=== PATIENT | female | born 1985 | race African-American/Black ===

== ENCOUNTER 2018-04-17 20:26 | Observation (INO) ==
[2018-04-17] MEDS ORDERED: SODIUM CHLORIDE 0.9% 1,000 ML IV STA (20:55)
[2018-04-17] MEDS ORDERED: MEPERIDINE 50 MG/1 ML VIAL IV STA ×3 (20:56→22:45)
[2018-04-17] MEDS ORDERED: ONDANSETRON 4 MG/2 ML VIAL IV STA (20:56)
[2018-04-17 21:02] LABS: Basophils # 0.1 10*3/uL (0.0-0.2); Basophils % 0.9 % (0.0-0.8); Eosinophils # 0.3 10*3/uL (0.0-0.87); Eosinophils % 2.8 % (0.00-10.9); Hematocrit 31.6 VOL% (35.7-47.0); Hemoglobin 9.5 GM/DL (12.0-16.0); Immature Granulocytes % 0.3 %; Immature Granulocytes Absolute 0.03 #; Lymphocytes # 2.5 10*3/uL (1.4-4.0); Lymphocytes % 28.9 % (21.3-54.2); Mean Corpuscular HGB Conc 30.1 GM/DL (32-36); Mean Corpuscular Hemoglobin 22 PG (27-34); Mean Corpuscular Volume 74.2 FL (87-102); Mean Platelet Volume 8.7 FL (9.6-12.0); Monocytes # 0.5 10*3/uL (0.11-0.8); Monocytes % 5.5 % (1.7-12.7); Neutrophils # 5.4 10*3/uL (1.4-7.4); Neutrophils % 61.6 % (38.7-73.9); Platelet Count 507 T/CUMM (130-400); Red Blood Count 4.26 MC/CUMM (3.8-5.5); Red Cell Distribution Width 17.5 % (9.3-17.3); White Blood Count 8.8 T/CUMM (4-12)
[2018-04-17 21:17] LABS: Alanine Aminotransferase 18 U/L (13-56); Albumin 3.2 G/DL (3.4-5.0); Alkaline Phosphatase 59 U/L (45-117); Aspartate Amino Transferase 14 U/L (0-37); Bilirubin,Total < 0.39 MG/DL (0.2-1.0); Blood Urea Nitrogen 8 MG/DL (7-18); Calcium 8.5 MG/DL (8.5-10.1); Glucose 101 MG/DL (74-106); Osmolality,Calculated 280.1 MOS/KG (273-304); Potassium 3.5 MMOL/L (3.5-5.1); Sodium 142 MMOL/L (136-145); Total Protein 7.1 G/DL (6.4-8.3)
[2018-04-17] MEDS ORDERED: MORPHINE 4 MG/1 ML VIAL ONE (22:51)
[2018-04-17] MEDS ORDERED: MORPHINE 4 MG/1 ML VIAL IV STA (23:15)
[2018-04-17] MEDS ORDERED: ONDANSETRON 4 MG/2 ML VIAL IV PRN (23:42)
[2018-04-17] MEDS ORDERED: ALBUTEROL 2.5 MG/3 ML NEB RESP TX PRN ×2 (23:44)
[2018-04-17] MEDS ORDERED: PROMETHAZINE 25 MG TABLET PO PRN (23:44)
[2018-04-18] MEDS: MORPHINE 4 MG/1 ML VIAL IV PRN ×5 (01:05→20:41)
[2018-04-18] MEDS: SODIUM CHLORIDE 0.9% 1,000 ML IV SCH ×2 (01:12→20:41)
[2018-04-18 03:35] LABS: Amorphous Crystals,Urine Few /HPF (Few); Apearance,Urine Slightly Hazy (Clear); Bilirubin,Urine Negative (Negative); Blood, Urine Negative (Negative); Glucose,Urine (UA) Negative (Negative); Hyaline Casts,Urine 3 /LPF (0-3); Ketones,Urine Negative (Negative); Mucus,Urine Occasional /LPF (Occasional); Nitrite,Urine Negative (Negative); Protein,Urine Negative; RBC,Urine 1 /HPF (0-4); Squamous Epithelial Cell,Urine Occasional /HPF (0-10); Urine Color Yellow (Yellow); Urine Urobilinogen < 2.0 EU/DL (0.2-1.0); WBC,Urine 7 /HPF (0-6)
[2018-04-18 05:43] LABS: Basophils # 0.1 10*3/uL (0.0-0.2); Basophils % 0.8 % (0.0-0.8); Eosinophils # 0.3 10*3/uL (0.0-0.87); Eosinophils % 3.8 % (0.00-10.9); Hematocrit 30.1 VOL% (35.7-47.0); Immature Granulocytes % 0.2 %; Immature Granulocytes Absolute 0.02 #; Lymphocytes # 2.8 10*3/uL (1.4-4.0); Lymphocytes % 32.9 % (21.3-54.2); Mean Corpuscular HGB Conc 29.9 GM/DL (32-36); Mean Corpuscular Hemoglobin 22 PG (27-34); Mean Corpuscular Volume 72.7 FL (87-102); Mean Platelet Volume 8.8 FL (9.6-12.0); Monocytes # 0.6 10*3/uL (0.11-0.8); Monocytes % 7.6 % (1.7-12.7); Neutrophils # 4.6 10*3/uL (1.4-7.4); Neutrophils % 54.7 % (38.7-73.9); Platelet Count 480 T/CUMM (130-400); Red Blood Count 4.14 MC/CUMM (3.8-5.5); Red Cell Distribution Width 17.8 % (9.3-17.3); White Blood Count 8.4 T/CUMM (4-12)
[2018-04-18 06:14] LABS: Albumin 3.1 G/DL (3.4-5.0); Bilirubin,Total 1.1 MG/DL (0.2-1.0); Calcium 8.2 MG/DL (8.5-10.1); Osmolality,Calculated 278.3 MOS/KG (273-304); Potassium 3.7 MMOL/L (3.5-5.1); Total Protein 6.5 G/DL (6.4-8.3)
[2018-04-18] MEDS: FERROUS SULFATE 325 MG TABLET PO SCH ×3 (09:11→20:42)
[2018-04-18] MEDS: ENOXAPARIN 40 MG/0.4 ML SYRINGE SUBCUT SCH (09:11)
[2018-04-18] MEDS: FOLIC ACID 0.4 MG TABLET PO SCH (09:11)
[2018-04-18] MEDS: tiZANidine 4 MG TABLET PO SCH ×3 (09:11→20:42)
[2018-04-18] MEDS: PANTOPRAZOLE 40 MG TABLET PO SCH (09:11)
[2018-04-18] MEDS: oxyCODONE/ACETAMINOPHEN 5-325 MG TABLET PO PRN (23:43)
[2018-04-19] MEDS: MORPHINE 4 MG/1 ML VIAL IV PRN ×2 (02:06→06:14)
[2018-04-19] MEDS: SODIUM CHLORIDE 0.9% 1,000 ML IV SCH ×2 (06:14→09:54)
[2018-04-19 06:25] LABS: Basophils # 0.1 10*3/uL (0.0-0.2); Basophils % 0.6 % (0.0-0.8); Eosinophils # 0.4 10*3/uL (0.0-0.87); Eosinophils % 4.1 % (0.00-10.9); Hematocrit 29.3 VOL% (35.7-47.0); Hemoglobin 8.7 GM/DL (12.0-16.0); Immature Granulocytes % 0.4 %; Immature Granulocytes Absolute 0.03 #; Lymphocytes # 2.7 10*3/uL (1.4-4.0); Mean Corpuscular HGB Conc 29.7 GM/DL (32-36); Mean Corpuscular Hemoglobin 22 PG (27-34); Mean Corpuscular Volume 74.6 FL (87-102); Mean Platelet Volume 9.2 FL (9.6-12.0); Monocytes # 0.6 10*3/uL (0.11-0.8); Monocytes % 7.1 % (1.7-12.7); Neutrophils # 4.9 10*3/uL (1.4-7.4); Neutrophils % 56.8 % (38.7-73.9); Platelet Count 480 T/CUMM (130-400); Red Blood Count 3.93 MC/CUMM (3.8-5.5); Red Cell Distribution Width 17.9 % (9.3-17.3); White Blood Count 8.5 T/CUMM (4-12)
[2018-04-19 07:11] LABS: Albumin 2.9 G/DL (3.4-5.0); Bilirubin,Total 0.6 MG/DL (0.2-1.0); Calcium 8.2 MG/DL (8.5-10.1); Osmolality,Calculated 280.1 MOS/KG (273-304); Total Protein 6.4 G/DL (6.4-8.3)
[2018-04-19] MEDS: FERROUS SULFATE 325 MG TABLET PO SCH (09:56)
[2018-04-19] MEDS: FOLIC ACID 0.4 MG TABLET PO SCH (09:56)
[2018-04-19] MEDS: tiZANidine 4 MG TABLET PO SCH (09:56)
[2018-04-19] MEDS: oxyCODONE/ACETAMINOPHEN 5-325 MG TABLET PO PRN (09:56)
[2018-04-19] MEDS: ENOXAPARIN 40 MG/0.4 ML SYRINGE SUBCUT SCH (09:56)
[2018-04-19] MEDS: PANTOPRAZOLE 40 MG TABLET PO SCH (09:56)
[2018-04-19 14:51] VITALS: BP 141/80
== END 2018-04-19 14:45 | disposition home or self-care (01) ==
LOC: EDBD → EDUNIT# → N.4E 20:26 → N.ED 20:26 → N.4E 04-18 01:09
PROVIDERS: ADMIT Internal Medicine; ATTEND Internal Medicine

== ENCOUNTER 2018-12-15 20:47 | Inpatient (IN) ==
[2018-12-15] MEDS ORDERED: SODIUM CHLORIDE 0.9% 1,000 ML IV STA (22:39)
[2018-12-15] MEDS ORDERED: MEPERIDINE 50 MG/1 ML VIAL IV STA (23:05)
[2018-12-15] MEDS ORDERED: ONDANSETRON 4 MG/2 ML VIAL IV STA (23:06)
[2018-12-15 23:31] LABS: Basophils # 0.1 10*3/uL (0.0-0.2); Basophils % 0.6 % (0.0-0.8); Eosinophils # 0.4 10*3/uL (0.0-0.87); Eosinophils % 3.8 % (0.00-10.9); Hematocrit 35.2 VOL% (35.7-47.0); Hemoglobin 10.6 GM/DL (12.0-16.0); Immature Granulocytes % 0.2 %; Immature Granulocytes Absolute 0.02 #; Lymphocytes # 2.7 10*3/uL (1.4-4.0); Lymphocytes % 25.8 % (21.3-54.2); Mean Corpuscular HGB Conc 30.1 GM/DL (32-36); Mean Corpuscular Hemoglobin 24 PG (27-34); Mean Corpuscular Volume 80.2 FL (87-102); Mean Platelet Volume 8.6 FL (9.6-12.0); Monocytes # 0.7 10*3/uL (0.11-0.8); Monocytes % 6.8 % (1.7-12.7); Neutrophils # 6.6 10*3/uL (1.4-7.4); Neutrophils % 62.8 % (38.7-73.9); Platelet Count 447 T/CUMM (130-400); Red Blood Count 4.39 MC/CUMM (3.8-5.5); White Blood Count 10.5 T/CUMM (4-12)
[2018-12-16] MEDS ORDERED: MEPERIDINE 50 MG/1 ML VIAL IV STA (00:11)
[2018-12-16 00:56] LABS: Alanine Aminotransferase 17 U/L (13-56); Albumin 3.2 G/DL (3.4-5.0); Alkaline Phosphatase 62 U/L (45-117); Aspartate Amino Transferase 11 U/L (0-37); Bilirubin,Total < 0.39 MG/DL (0.2-1.0); Blood Urea Nitrogen 5 MG/DL (7-18); Calcium 8.5 MG/DL (8.5-10.1); Total Protein 7.1 G/DL (6.4-8.3)
[2018-12-16 00:57] LABS: Glucose 97 MG/DL (74-106); Osmolality,Calculated 277.3 MOS/KG (273-304); Potassium 3.7 MMOL/L (3.5-5.1); Sodium 141 MMOL/L (136-145)
[2018-12-16] MEDS ORDERED: ALBUTEROL 2.5 MG/3 ML NEB RESP TX PRN (03:45)
[2018-12-16] MEDS ORDERED: CEFTAROLINE 600 MG in SODIUM CHLORIDE 0.9% 100 ML IV SCH (04:00)
[2018-12-16] MEDS: ENOXAPARIN 40 MG/0.4 ML SYRINGE SUBCUT SCH (04:43)
[2018-12-16] MEDS: MORPHINE 4 MG/1 ML VIAL IV PRN ×3 (04:48→17:11)
[2018-12-16] MEDS: SODIUM CHLORIDE 0.9% 1,000 ML IV SCH ×2 (04:49→13:58)
[2018-12-16 04:56] LABS: Basophils # 0.1 10*3/uL (0.0-0.2); Basophils % 0.5 % (0.0-0.8); Eosinophils # 0.4 10*3/uL (0.0-0.87); Hematocrit 35.7 VOL% (35.7-47.0); Immature Granulocytes % 0.5 %; Immature Granulocytes Absolute 0.05 #; Lymphocytes # 2.9 10*3/uL (1.4-4.0); Mean Corpuscular HGB Conc 29.4 GM/DL (32-36); Mean Corpuscular Hemoglobin 24 PG (27-34); Mean Corpuscular Volume 80.8 FL (87-102); Mean Platelet Volume 8.4 FL (9.6-12.0); Monocytes # 0.6 10*3/uL (0.11-0.8); Monocytes % 5.6 % (1.7-12.7); Neutrophils # 6.3 10*3/uL (1.4-7.4); Neutrophils % 61.4 % (38.7-73.9); Platelet Count 426 T/CUMM (130-400); Red Blood Count 4.42 MC/CUMM (3.8-5.5); White Blood Count 10.2 T/CUMM (4-12)
[2018-12-16 05:12] LABS: Hemoglobin 10.6 GM/DL (12.0-16.0)
[2018-12-16 05:29] LABS: Albumin 3.2 G/DL (3.4-5.0); Bilirubin,Total 0.5 MG/DL (0.2-1.0); Calcium 7.9 MG/DL (8.5-10.1); Osmolality,Calculated 275.4 MOS/KG (273-304); Potassium 3.9 MMOL/L (3.5-5.1); Total Protein 7.1 G/DL (6.4-8.3)
[2018-12-16] MEDS: LISINOPRIL 5 MG TABLET PO SCH (08:51)
[2018-12-16] MEDS: FERROUS SULFATE 325 MG TABLET PO SCH ×3 (08:51→20:50)
[2018-12-16] MEDS: FOLIC ACID 1 MG TABLET PO SCH (08:51)
[2018-12-16] MEDS: ONDANSETRON 4 MG/2 ML VIAL IV PRN ×2 (12:23→17:08)
[2018-12-16] MEDS: VANCOMYCIN INJ 2,000 MG in SODIUM CHLORIDE 0.9% 500 ML IV SCH (15:17)
[2018-12-17] MEDS: MORPHINE 4 MG/1 ML VIAL IV PRN (00:28)
[2018-12-17] MEDS: SODIUM CHLORIDE 0.9% 1,000 ML IV SCH (00:34)
[2018-12-17] MEDS: VANCOMYCIN INJ 2,000 MG in SODIUM CHLORIDE 0.9% 500 ML IV SCH (03:31)
[2018-12-17 08:28] LABS: Basophils % 0.3 % (0.0-0.8); Eosinophils # 0.4 10*3/uL (0.0-0.87); Eosinophils % 3.8 % (0.00-10.9); Hematocrit 34.2 VOL% (35.7-47.0); Hemoglobin 10.1 GM/DL (12.0-16.0); Immature Granulocytes % 0.4 %; Immature Granulocytes Absolute 0.04 #; Lymphocytes # 2.2 10*3/uL (1.4-4.0); Lymphocytes % 23.6 % (21.3-54.2); Mean Corpuscular HGB Conc 29.5 GM/DL (32-36); Mean Corpuscular Hemoglobin 24 PG (27-34); Mean Platelet Volume 8.3 FL (9.6-12.0); Monocytes # 0.5 10*3/uL (0.11-0.8); Monocytes % 5.2 % (1.7-12.7); Neutrophils # 6.3 10*3/uL (1.4-7.4); Neutrophils % 66.7 % (38.7-73.9); Platelet Count 401 T/CUMM (130-400); Red Blood Count 4.22 MC/CUMM (3.8-5.5); Red Cell Distribution Width 15.9 % (9.3-17.3); White Blood Count 9.4 T/CUMM (4-12)
[2018-12-17] MEDS: LISINOPRIL 5 MG TABLET PO SCH (09:57)
[2018-12-17] MEDS: FOLIC ACID 1 MG TABLET PO SCH (09:57)
[2018-12-17] MEDS: ENOXAPARIN 40 MG/0.4 ML SYRINGE SUBCUT SCH (09:57)
[2018-12-17] MEDS: FERROUS SULFATE 325 MG TABLET PO SCH (09:58)
[2018-12-17 11:26] VITALS: BP 166/91
== END 2018-12-17 11:54 | disposition home or self-care (01) | DRG 662 ==
LOC: N.ED 20:47 → N.2E 20:47
PROVIDERS: ADMIT Internal Medicine; ATTEND Internal Medicine

== ENCOUNTER 2021-03-25 14:13 | Inpatient (IN) ==
[2021-03-25 15:43] LABS: Basophils # 0.1 10*3/uL (0.0-0.2); Basophils % 0.4 % (0.0-0.8); Eosinophils # 0.4 10*3/uL (0.0-0.87); Eosinophils % 2.5 % (0.00-10.9); Hematocrit 34.6 VOL% (35.7-47.0); Hemoglobin 10.1 GM/DL (12.0-16.0); Immature Granulocytes % 0.4 %; Immature Granulocytes Absolute 0.06 #; Lymphocytes # 2.7 10*3/uL (1.4-4.0); Lymphocytes % 19.2 % (21.3-54.2); Mean Corpuscular HGB Conc 29.2 GM/DL (32-36); Mean Corpuscular Volume 73.5 FL (87-102); Mean Platelet Volume 8.8 FL (9.6-12.0); Monocytes % 5.2 % (1.7-12.7); Neutrophils % 72.3 % (38.7-73.9); Platelet Count 692 T/CUMM (130-400); Red Blood Count 4.71 MC/CUMM (3.8-5.5); Red Cell Distribution Width 18.5 % (9.3-17.3); White Blood Count 14.2 T/CUMM (4-12)
[2021-03-25 15:54] LABS: Alanine Aminotransferase 19 U/L (13-56); Albumin 3.3 G/DL (3.4-5.0); Alkaline Phosphatase 71 U/L (45-117); Aspartate Amino Transferase 16 U/L (0-37); Bilirubin,Total < 0.39 MG/DL (0.20-1.00); Blood Urea Nitrogen 6 MG/DL (7-18); Calcium 8.5 MG/DL (8.5-10.1); Carbon Dioxide 26 MMOL/L (21-32); Glucose 100 MG/DL (74-106); Osmolality,Calculated 276.4 MOS/KG (273-304); Potassium 4.1 MMOL/L (3.5-5.1); Sodium 140 MMOL/L (136-145); Total Protein 7.2 G/DL (6.4-8.2)
[2021-03-25 15:57] LABS: Estimated Glom Filtration Rate 0 ML/MIN
[2021-03-25] MEDS ORDERED: HYDROmorphone 2 MG/1 ML VIAL IV STA ×3 (16:08→18:10)
[2021-03-25] MEDS ORDERED: ONDANSETRON 4 MG/2 ML VIAL ONE (16:12)
[2021-03-25] MEDS ORDERED: DEXTROSE 50% 25 GM/50 ML VIAL IV PRN (18:41)
[2021-03-25] MEDS ORDERED: ONDANSETRON 4 MG/2 ML VIAL IV PRN (18:41)
[2021-03-25] MEDS ORDERED: MORPHINE 2 MG/1 ML SYRINGE IV PRN (18:41)
[2021-03-25] MEDS ORDERED: GLUCAGON 1 MG VIAL IM PRN (18:41)
[2021-03-25] MEDS ORDERED: ALBUTEROL 2.5 MG/3 ML NEB RESP TX PRN (18:44)
[2021-03-25] MEDS ORDERED: hydrALAZINE 20 MG/1 ML VIAL IV PRN (19:00)
[2021-03-25] MEDS: GABAPENTIN 300 MG CAPSULE PO SCH (21:19)
[2021-03-25] MEDS: ENOXAPARIN 40 MG/0.4 ML SYRINGE SUBCUT SCH (21:19)
[2021-03-25] MEDS: FERROUS SULFATE 325 MG TABLET PO SCH (21:19)
[2021-03-25] MEDS: SODIUM CHLORIDE 0.45% 1,000 ML IV SCH (21:19)
[2021-03-26] MEDS: ACETAMINOPHEN 500 MG TABLET PO PRN (01:32)
[2021-03-26 05:57] LABS: Calcium 8.3 MG/DL (8.5-10.1); Osmolality,Calculated 272.7 MOS/KG (273-304); Potassium 4.1 MMOL/L (3.5-5.1)
[2021-03-26 06:00] LABS: Basophils # 0.1 10*3/uL (0.0-0.2); Basophils % 0.6 % (0.0-0.8); Eosinophils # 0.2 10*3/uL (0.0-0.87); Eosinophils % 1.6 % (0.00-10.9); Hematocrit 32.4 VOL% (35.7-47.0); Hemoglobin 9.7 GM/DL (12.0-16.0); Immature Granulocytes % 0.4 %; Immature Granulocytes Absolute 0.04 #; Lymphocytes % 18.9 % (21.3-54.2); Mean Corpuscular HGB Conc 29.9 GM/DL (32-36); Mean Platelet Volume 8.7 FL (9.6-12.0); Monocytes % 6.5 % (1.7-12.7); Platelet Count 624 T/CUMM (130-400); Red Blood Count 4.38 MC/CUMM (3.8-5.5); Red Cell Distribution Width 18.7 % (9.3-17.3); White Blood Count 10.8 T/CUMM (4-12)
[2021-03-26] MEDS ORDERED: KETOROLAC 30 MG/1 ML VIAL IV ONE (08:07)
[2021-03-26] MEDS: FERROUS SULFATE 325 MG TABLET PO SCH ×3 (09:14→20:39)
[2021-03-26] MEDS: CETIRIZINE 10 MG TABLET PO SCH (09:14)
[2021-03-26] MEDS: PANTOPRAZOLE 40 MG TABLET PO SCH (09:14)
[2021-03-26] MEDS: FOLIC ACID 1 MG TABLET PO SCH (09:15)
[2021-03-26] MEDS: GABAPENTIN 300 MG CAPSULE PO SCH ×2 (09:15→20:39)
[2021-03-26] MEDS: MELOXICAM 7.5 MG TABLET PO SCH (09:15)
[2021-03-26] MEDS: SODIUM CHLORIDE 0.45% 1,000 ML IV SCH ×2 (10:40→23:19)
[2021-03-26] MEDS ORDERED: HYDROmorphone PCA 30 MG/30 ML SYRINGE IV SCH (14:00)
[2021-03-26] MEDS: ENOXAPARIN 40 MG/0.4 ML SYRINGE SUBCUT SCH (20:39)
[2021-03-27 06:30] LABS: Basophils # 0.1 10*3/uL (0.0-0.2); Basophils % 0.5 % (0.0-0.8); Eosinophils # 0.4 10*3/uL (0.0-0.87); Eosinophils % 2.7 % (0.00-10.9); Hematocrit 31.2 VOL% (35.7-47.0); Hemoglobin 9.2 GM/DL (12.0-16.0); Immature Granulocytes % 0.9 %; Immature Granulocytes Absolute 0.12 #; Lymphocytes # 3.7 10*3/uL (1.4-4.0); Lymphocytes % 27.8 % (21.3-54.2); Mean Corpuscular HGB Conc 29.5 GM/DL (32-36); Mean Corpuscular Volume 75.5 FL (87-102); Mean Platelet Volume 8.6 FL (9.6-12.0); Monocytes % 5.7 % (1.7-12.7); Neutrophils % 62.4 % (38.7-73.9); Platelet Count 615 T/CUMM (130-400); Red Blood Count 4.13 MC/CUMM (3.8-5.5); Red Cell Distribution Width 18.7 % (9.3-17.3); White Blood Count 13.2 T/CUMM (4-12)
[2021-03-27 07:04] LABS: Calcium 8.3 MG/DL (8.5-10.1); Potassium 4.7 MMOL/L (3.5-5.1)
[2021-03-27] MEDS: PANTOPRAZOLE 40 MG TABLET PO SCH (09:15)
[2021-03-27] MEDS: GABAPENTIN 300 MG CAPSULE PO SCH (09:15)
[2021-03-27] MEDS: FERROUS SULFATE 325 MG TABLET PO SCH (09:15)
[2021-03-27] MEDS: FOLIC ACID 1 MG TABLET PO SCH (09:15)
[2021-03-27] MEDS: MELOXICAM 7.5 MG TABLET PO SCH (09:15)
[2021-03-27] MEDS: CETIRIZINE 10 MG TABLET PO SCH (09:15)
[2021-03-27] MEDS ORDERED: traMADol 50 MG TABLET PO PRN (10:23)
[2021-03-27] MEDS: ACETAMINOPHEN 500 MG TABLET PO PRN (11:40)
[2021-03-27 12:33] VITALS: BP 130/58
[2021-03-27] MEDS: SODIUM CHLORIDE 0.45% 1,000 ML IV SCH (13:14)
[2021-03-27] MEDS ORDERED: HYDROmorphone PCA 30 MG/30 ML SYRINGE IV SCH (13:30)
[2021-03-28] MEDS ORDERED: AZITHROMYCIN 250 MG TABLET PO SCH (09:00)
== END 2021-03-27 13:50 | disposition home or self-care (01) | DRG 662 ==
LOC: N.EDINP 14:13 → N.ED 14:13 → N.3E 20:22
PROVIDERS: ADMIT Internal Medicine; ATTEND Internal Medicine

== ENCOUNTER 2021-07-03 05:23 | Observation (INO) ==
[2021-07-03 06:08] LABS: Alanine Aminotransferase 18 U/L (13-56); Albumin 3.4 G/DL (3.4-5.0); Alkaline Phosphatase 66 U/L (45-117); Aspartate Amino Transferase 17 U/L (0-37); Bilirubin,Total < 0.39 MG/DL (0.20-1.00); Blood Urea Nitrogen 6 MG/DL (7-18); Calcium 8.9 MG/DL (8.5-10.1); Carbon Dioxide 26 MMOL/L (21-32); Estimated Glom Filtration Rate 120 ML/MIN; Glucose 106 MG/DL (74-106); Osmolality,Calculated 274.5 MOS/KG (273-304); Potassium 3.6 MMOL/L (3.5-5.1); Sodium 139 MMOL/L (136-145)
[2021-07-03] MEDS ORDERED: NITROGLYCERIN SL 0.4 MG TABLET SL STA (06:16)
[2021-07-03] MEDS ORDERED: hydrALAZINE 20 MG/1 ML VIAL IV STA ×2 (06:17→08:11)
[2021-07-03] MEDS ORDERED: ALBUTEROL 2.5 MG/3 ML NEB RESP TX STA (06:17)
[2021-07-03 06:40] LABS: Basophils # 0.1 10*3/uL (0.0-0.2); Basophils % 0.6 % (0.0-0.8); Eosinophils # 0.2 10*3/uL (0.0-0.87); Eosinophils % 1.7 % (0.00-10.9); Hematocrit 34.7 VOL% (35.7-47.0); Hemoglobin 10.3 GM/DL (12.0-16.0); Immature Granulocytes % 0.5 %; Immature Granulocytes Absolute 0.06 #; Lymphocytes # 2.7 10*3/uL (1.4-4.0); Lymphocytes % 21.2 % (21.3-54.2); Mean Corpuscular HGB Conc 29.7 GM/DL (32-36); Mean Corpuscular Volume 75.4 FL (87-102); Mean Platelet Volume 9.1 FL (9.6-12.0); Monocytes % 5.4 % (1.7-12.7); Neutrophils % 70.6 % (38.7-73.9); Red Cell Distribution Width 19.3 % (9.3-17.3); White Blood Count 12.6 T/CUMM (4-12)
[2021-07-03 06:41] LABS: Platelet Count 649 T/CUMM (130-400)
[2021-07-03] MEDS ORDERED: cefTRIAXone 1,000 MG in SODIUM CHLORIDE 0.9% 100 ML IV STA (09:44)
[2021-07-03] MEDS ORDERED: ACETAMINOPHEN 325 MG TABLET PO PRN (10:24)
[2021-07-03] MEDS ORDERED: ONDANSETRON 4 MG/2 ML VIAL IV PRN (10:24)
[2021-07-03] MEDS ORDERED: GLUCAGON 1 MG VIAL IM PRN (10:24)
[2021-07-03] MEDS ORDERED: DEXTROSE 50% 25 GM/50 ML VIAL IV PRN (10:24)
[2021-07-03] MEDS ORDERED: hydrALAZINE 20 MG/1 ML VIAL IV PRN (10:24)
[2021-07-03] MEDS ORDERED: BENZONATATE 100 MG CAPSULE PO PRN (10:37)
[2021-07-03] MEDS ORDERED: ALBUTEROL 2.5 MG/3 ML NEB RESP TX PRN (10:37)
[2021-07-03] MEDS ORDERED: ALBUTEROL 2.5 MG/3 ML NEB RESP TX SCH (11:00)
[2021-07-03] MEDS: AZITHROMYCIN INJ 500 MG in SODIUM CHLORIDE 0.9% 250 ML IV SCH (12:30)
[2021-07-03] MEDS: INSULIN LISPRO 100 UNIT/ML SUBCUT SCH ×2 (13:55→16:24)
[2021-07-03] MEDS: cefTRIAXone 1,000 MG in SODIUM CHLORIDE 0.9% 100 ML IV SCH (15:56)
[2021-07-03] MEDS: ALBUTEROL/IPRATROPIUM 3 ML NEB RESP TX SCH ×2 (16:00→19:29)
[2021-07-03] MEDS: GABAPENTIN 300 MG CAPSULE PO SCH ×2 (16:00→21:27)
[2021-07-03] MEDS: FERROUS SULFATE 325 MG TABLET PO SCH ×2 (16:00→21:27)
[2021-07-03] MEDS: ENOXAPARIN 40 MG/0.4 ML SYRINGE SUBCUT SCH (16:02)
[2021-07-03] MEDS: BUDESONIDE/FORMOTEROL 160-4.5 INHALER 6 GM INH SCH (22:10)
[2021-07-04] MEDS: ALBUTEROL/IPRATROPIUM 3 ML NEB RESP TX SCH ×3 (01:30→18:06)
[2021-07-04 05:38] LABS: Calcium 8.5 MG/DL (8.5-10.1); Osmolality,Calculated 280.1 MOS/KG (273-304); Potassium 3.7 MMOL/L (3.5-5.1); Risk Ratio 5.06; Thyroid Stimulating Hormone 3.08 uIU/ml (0.358-3.74); VLDL Cholesterol 19.6 MG/DL
[2021-07-04 05:48] LABS: Basophils # 0.1 10*3/uL (0.0-0.2); Basophils % 0.6 % (0.0-0.8); Eosinophils # 0.2 10*3/uL (0.0-0.87); Eosinophils % 2.2 % (0.00-10.9); Hematocrit 31.5 VOL% (35.7-47.0); Immature Granulocytes % 0.4 %; Immature Granulocytes Absolute 0.04 #; Lymphocytes # 2.2 10*3/uL (1.4-4.0); Lymphocytes % 24.7 % (21.3-54.2); Mean Corpuscular HGB Conc 28.9 GM/DL (32-36); Mean Corpuscular Volume 76.5 FL (87-102); Mean Platelet Volume 8.8 FL (9.6-12.0); Monocytes % 6.8 % (1.7-12.7); Neutrophils % 65.3 % (38.7-73.9); Platelet Count 590 T/CUMM (130-400); Red Blood Count 4.12 MC/CUMM (3.8-5.5); Red Cell Distribution Width 19.5 % (9.3-17.3); White Blood Count 9.1 T/CUMM (4-12)
[2021-07-04 05:55] LABS: Hemoglobin 9.1 GM/DL (12.0-16.0)
[2021-07-04 06:14] LABS: Hypochromasia 2+; Microcytosis 2+; Platelet Estimate Increased
[2021-07-04] MEDS ORDERED: PANTOPRAZOLE 40 MG TABLET PO SCH (09:00)
[2021-07-04] MEDS ORDERED: amLODIPine 5 MG TABLET PO SCH (09:00)
[2021-07-04] MEDS ORDERED: CETIRIZINE 10 MG TABLET PO SCH (09:00)
[2021-07-04] MEDS: FERROUS SULFATE 325 MG TABLET PO SCH ×2 (09:23→18:06)
[2021-07-04] MEDS: BUDESONIDE/FORMOTEROL 160-4.5 INHALER 6 GM INH SCH (09:24)
[2021-07-04] MEDS: GABAPENTIN 300 MG CAPSULE PO SCH ×2 (09:24→18:06)
[2021-07-04] MEDS ORDERED: BENZONATATE 100 MG CAPSULE PO PRN (09:30)
[2021-07-04 11:40] VITALS: BP 153/104
[2021-07-04] MEDS: AZITHROMYCIN INJ 500 MG in SODIUM CHLORIDE 0.9% 250 ML IV SCH (12:32)
[2021-07-04] MEDS: ENOXAPARIN 40 MG/0.4 ML SYRINGE SUBCUT SCH (12:32)
[2021-07-04] MEDS: cefTRIAXone 1,000 MG in SODIUM CHLORIDE 0.9% 100 ML IV SCH (18:07)
[2021-07-05] MEDS ORDERED: AZITHROMYCIN 250 MG TABLET PO SCH (09:00)
== END 2021-07-04 18:35 | disposition home or self-care (01) ==
LOC: EDUNIT# → EDBD → N.ED 05:23 → N.EDINP 05:23 → SUATTDRO 10:24 → N.5E 12:34
PROVIDERS: ADMIT Internal Medicine Nephrology; ATTEND Internal Medicine

== ENCOUNTER 2022-05-24 14:42 | Observation (INO) ==
[2022-05-24] MEDS ORDERED: ASPIRIN 325 MG TABLET PO STA (15:20)
[2022-05-24] MEDS ORDERED: ONDANSETRON 4 MG/2 ML VIAL IV STA (15:20)
[2022-05-24] MEDS ORDERED: METOPROLOL TARTRATE 5 MG/5 ML VIAL IV STA (15:20)
[2022-05-24] MEDS ORDERED: NITROGLYCERIN 2% OINT 1 INCH/GM PACK TOP STA (15:20)
[2022-05-24] MEDS ORDERED: ACETAMINOPHEN 500 MG TABLET ONE (15:45)
[2022-05-24 15:49] LABS: Alanine Aminotransferase 17 U/L (13-56); Alkaline Phosphatase 64 U/L (45-117); Aspartate Amino Transferase 16 U/L (0-37); Bilirubin,Total < 0.39 MG/DL (0.20-1.00); Blood Urea Nitrogen 7 MG/DL (7-18); Calcium 8.6 MG/DL (8.5-10.1); Carbon Dioxide 25 MMOL/L (21-32); Chloride 107 MMOL/L (98-107); Glucose 104 MG/DL (74-106); Osmolality,Calculated 278.3 MOS/KG (273-304); Potassium 3.6 MMOL/L (3.5-5.1); Sodium 141 MMOL/L (136-145); Total Protein 7.3 G/DL (6.4-8.2)
[2022-05-24 15:52] LABS: Basophils # 0.1 10*3/uL (0.0-0.2); Basophils % 0.4 % (0.0-0.8); Eosinophils # 0.2 10*3/uL (0.0-0.87); Eosinophils % 1.8 % (0.00-10.9); Hematocrit 33.4 VOL% (35.7-47.0); Immature Granulocytes % 0.4 %; Immature Granulocytes Absolute 0.06 #; Lymphocytes # 2.4 10*3/uL (1.4-4.0); Lymphocytes % 17.6 % (21.3-54.2); Mean Corpuscular HGB Conc 29.9 GM/DL (32-36); Mean Corpuscular Volume 75.9 FL (87-102); Mean Platelet Volume 8.8 FL (9.6-12.0); Monocytes # 0.6 10*3/uL (0.11-0.8); Monocytes % 4.7 % (1.7-12.7); Neutrophils % 75.1 % (38.7-73.9); Platelet Count 595 T/CUMM (130-400); Red Cell Distribution Width 17.2 % (9.3-17.3); White Blood Count 13.5 T/CUMM (4-12)
[2022-05-24 16:50] LABS: INR 0.9; PT Patient Result 10.4 SECS (10.1-12.1); Partial Thromboplastin Time 27.5 SECS (23.7-32.9)
[2022-05-24] MEDS ORDERED: ENOXAPARIN 60 MG/0.6 ML SYRINGE SUBCUT STA (16:57)
[2022-05-24 17:48] LABS: Mucus,Urine Occasional /LPF (Occasional); RBC,Urine 4 /HPF (0-4); Squamous Epithelial Cell,Urine Occasional /HPF (0-10)
[2022-05-24 17:49] LABS: Urine Appearance Clear (Clear); Urine Color Yellow (Yellow)
[2022-05-24 17:50] LABS: Bilirubin,Urine Negative (Negative); Blood, Urine Trace mg/dL (Negative); Glucose,Urine (UA) Negative (Negative); Ketones,Urine Negative (Negative); Nitrite,Urine Negative (Negative); Protein,Urine Trace mg/dL (Negative); Urine Specific Gravity 1.015 (1.001-1.035); Urine Urobilinogen 0.2 eU/dL (<2.0)
[2022-05-24] MEDS ORDERED: ONDANSETRON 4 MG/2 ML VIAL IV PRN (18:34)
[2022-05-24] MEDS ORDERED: NITROGLYCERIN SL 0.4 MG TABLET SL PRN (18:34)
[2022-05-24] MEDS ORDERED: MORPHINE 2 MG/1 ML SYRINGE IV PRN (18:34)
[2022-05-24 18:39] LABS: Barbiturates Screen,Urine Negative (Negative); Benzodiazepines Screen,Urine Negative (Negative); Cannabinoid Screen,Urine Negative (Negative); Opiate Screen,Urine Negative (Negative); Phencyclidine Screen,Urine Negative (Negative)
[2022-05-24] MEDS ORDERED: ENOXAPARIN 60 MG/0.6 ML SYRINGE SUBCUT ONE (21:00)
[2022-05-24] MEDS: ACETAMINOPHEN 325 MG TABLET PO PRN (21:36)
[2022-05-24] MEDS: DOCUSATE SODIUM 100 MG CAPSULE PO SCH (21:37)
[2022-05-25] MEDS: ACETAMINOPHEN 325 MG TABLET PO PRN (05:15)
[2022-05-25] MEDS: hydrALAZINE 20 MG/1 ML VIAL IV PRN ×2 (06:01→16:44)
[2022-05-25] MEDS: LABETALOL 200 MG TABLET PO SCH ×2 (08:41→21:01)
[2022-05-25] MEDS: PANTOPRAZOLE 40 MG TABLET PO SCH (08:41)
[2022-05-25] MEDS: DOCUSATE SODIUM 100 MG CAPSULE PO SCH ×2 (08:41→21:00)
[2022-05-25] MEDS ORDERED: METOPROLOL TARTRATE 25 MG TABLET PO SCH (09:00)
[2022-05-25] MEDS ORDERED: lisinopriL 10 MG TABLET PO SCH (09:00)
[2022-05-25] MEDS ORDERED: ALBUTEROL 2.5 MG/3 ML NEB RESP TX PRN (10:06)
[2022-05-25] MEDS: CETIRIZINE 10 MG TABLET PO SCH (10:15)
[2022-05-25 11:02] LABS: Risk Ratio 4.8; VLDL Cholesterol 30.6 MG/DL
[2022-05-25] MEDS: FERROUS SULFATE 325 MG TABLET PO SCH ×2 (14:58→21:00)
[2022-05-25] MEDS: GABAPENTIN 300 MG CAPSULE PO SCH ×2 (14:58→21:01)
[2022-05-25] MEDS ORDERED: ROSUVASTATIN 20 MG TABLET PO SCH (21:00)
[2022-05-25] MEDS ORDERED: lisinopriL 5 MG TABLET PO SCH (21:00)
[2022-05-25] MEDS: POTASSIUM CHLORIDE 20 MEQ TABLET PO SCH (21:01)
[2022-05-25] MEDS: BUDESONIDE/FORMOTEROL 160-4.5 INHALER 6 GM INH SCH (21:03)
[2022-05-26 05:40] LABS: Basophils % 0.3 % (0.0-0.8); Eosinophils # 0.2 10*3/uL (0.0-0.87); Eosinophils % 2.1 % (0.00-10.9); Hematocrit 30.7 VOL% (35.7-47.0); Hemoglobin 9.1 GM/DL (12.0-16.0); Immature Granulocytes % 0.4 %; Immature Granulocytes Absolute 0.04 #; Lymphocytes # 2.1 10*3/uL (1.4-4.0); Lymphocytes % 20.8 % (21.3-54.2); Mean Corpuscular HGB Conc 29.6 GM/DL (32-36); Mean Corpuscular Volume 77.1 FL (87-102); Mean Platelet Volume 8.7 FL (9.6-12.0); Monocytes # 0.5 10*3/uL (0.11-0.8); Monocytes % 4.6 % (1.7-12.7); Neutrophils % 71.8 % (38.7-73.9); Platelet Count 485 T/CUMM (130-400); Red Blood Count 3.98 MC/CUMM (3.8-5.5); Red Cell Distribution Width 17.6 % (9.3-17.3); White Blood Count 10.1 T/CUMM (4-12)
[2022-05-26 06:07] LABS: Calcium 8.6 MG/DL (8.5-10.1); Osmolality,Calculated 274.7 MOS/KG (273-304); Potassium 3.5 MMOL/L (3.5-5.1)
[2022-05-26] MEDS: PANTOPRAZOLE 40 MG TABLET PO SCH (08:56)
[2022-05-26] MEDS: CETIRIZINE 10 MG TABLET PO SCH (08:57)
[2022-05-26] MEDS: LABETALOL 200 MG TABLET PO SCH (08:58)
[2022-05-26] MEDS: POTASSIUM CHLORIDE 20 MEQ TABLET PO SCH (08:58)
[2022-05-26] MEDS: DOCUSATE SODIUM 100 MG CAPSULE PO SCH (08:58)
[2022-05-26] MEDS: FERROUS SULFATE 325 MG TABLET PO SCH (08:59)
[2022-05-26] MEDS ORDERED: SPIRONOLACTONE 25 MG TABLET PO SCH (09:00)
[2022-05-26] MEDS: GABAPENTIN 300 MG CAPSULE PO SCH (09:00)
[2022-05-26] MEDS ORDERED: SACUBITRIL/VALSARTAN 49-51 MG TABLET PO SCH (09:00)
[2022-05-26] MEDS ORDERED: DAPAGLIFLOZIN 10 MG TABLET PO SCH (09:00)
[2022-05-26] MEDS: BUDESONIDE/FORMOTEROL 160-4.5 INHALER 6 GM INH SCH (09:18)
[2022-05-26] MEDS ORDERED: metFORMIN 500 MG TABLET PO SCH (09:45)
[2022-05-26 12:41] VITALS: BP 107/61
== END 2022-05-26 13:45 | disposition home or self-care (01) ==
LOC: EDBD → EDUNIT# → N.EDINP 14:42 → N.ED 14:42 → N.EDINP 18:28 → N.TELEN 18:38
PROVIDERS: ADMIT Family Medicine; ATTEND Family Medicine